=== PATIENT | female | born 1980 | race Caucasian/White ===

== ENCOUNTER 2019-01-29 20:54 | Emergency (ER) | payer OTHER ==
[2019-01-29 21:13] VITALS: BP 104/62
[2019-01-29] MEDS ORDERED: Nitrofurantoin Macrocrystals* 50 MG CAP PO ONE (21:35)
[2019-01-29] MEDS ORDERED: Ibuprofen TAB* 400 MG PO ONE (21:37)
[2019-01-29] MEDS ORDERED: Phenazopyridine TAB* 100 MG PO ONE (21:37)
--- NOTE | 2019-01-29 21:44 | UC ---
Complaint Female HPI - HPI Summary HPI Summary: Pt presents with sudden onset of urinary frequency, urgency an ddysuria that began this morning. Pt states that she is trying to get . - History Of Current Complaint Chief Complaint: UCGU Stated Complaint: POSS UTI Time Seen by Provider: 01/29/19 21:06 Hx Obtained From: Patient Hx Last Menstrual Period: 01/13/2019 ?: No Onset/Duration: Sudden Onset, Lasting Hours Timing: Constant Severity Initially: Mild Severity Currently: Moderate Pain Intensity: 6 Character: Dull, Burning Aggravating Factor(s): Urination Alleviating Factor(s): Nothing Associated Signs And Symptoms: Positive: Negative - Risk Factors Ectopic Risk Factor: Negative Ovarian Torsion Risk Factor: Reproductive Age - Allergies/Home Medications Allergies/Adverse Reactions: Allergies Allergy/AdvReac Type Severity Reaction Status Date / Time No Known Allergies Allergy Verified 01/17/15 18:30 Home Medications: Home Medications Multivitamin [Rol-Oarfal-Ysltr] 1 each PO 01/29/19 [History] PMH/Surg Hx/FS Hx/Imm Hx Previously Healthy: Yes - Surgical History Surgical History: Yes Surgery Procedure, Year, and Place: ectopic right tube removed 2005 - Family History Known Family History: Positive: Cardiac Disease - Social History Occupation: Employed Full-time Lives: With Family Alcohol Use: Occasionally Substance Use Type: None Smoking Status (MU): Never Smoked Tobacco Have You Smoked in the Last Year: No - Immunization History Vaccination Up to Date: Yes Review of Systems All Other Systems Reviewed And Are Negative: Yes Constitutional: Positive: Negative Skin: Positive: Negative Eyes: Positive: Negative ENT: Positive: Negative Respiratory: Positive: Negative Cardiovascular: Positive: Negative Gastrointestinal: Positive: Negative Genitourinary: Positive: Dysuria, Frequency, Urgency Motor: Positive: Negative Neurovascular: Positive: Negative Musculoskeletal: Positive: Negative Neurological: Positive: Negative Psychological: Positive: Negative Is Patient Immunocompromised?: No Physical Exam Triage Information Reviewed: Yes Appearance: Well-Appearing Vital Signs: Initial Vital Signs Temp 98.9 F 01/29/19 21:07 Pulse 80 01/29/19 21:07 Resp 16 01/29/19 21:07 BP 104/62 01/29/19 21:07 Pulse Ox 100 01/29/19 21:07 Vital Signs Reviewed: Yes Eye Exam: Normal ENT Exam: Normal Dental Exam: Normal Neck exam: Normal Respiratory Exam: Normal Cardiovascular Exam: Normal Abdominal Exam: Normal Abdomen Description: Positive: Nontender Musculoskeletal Exam: Normal Neurological Exam: Normal Psychological Exam: Normal Skin Exam: Normal Complaint Female Dx - Differential Dx/Diagnosis Differential Diagnosis/HQI/PQRI: Urinary Tract Infection Provider Diagnosis: UTI (urinary tract infection) Discharge - Sign-Out/Discharge Documenting (check all that apply): Patient Departure All imaging exams completed and their final reports reviewed: No Studies - Discharge Plan Condition: Stable Disposition: HOME Prescriptions: Nitrofurantoin Monohyd/M-Cryst [Macrobid 100 mg Capsule] 100 mg PO Q12H #14 cap Phenazopyridine TAB* [Pyridium 100 mg TAB*] 100 mg PO Q8H #3 tab Patient Education Materials: Urinary Tract Infection in Women (ED) Referrals: [facility] [place] PHYSICIAN REFERRAL [Outside] - If Needed No Primary Care Phys,NOPCP [Primary Care Provider] - Additional Instructions: Please follow up with your PCP as needed. - Billing Disposition and Condition Condition: STABLE Disposition: Home
== END 2019-01-29 21:56 | disposition home or self-care (01) ==
LOC: UCEAST 20:54
DX: N39.0 Urinary tract infection, site not specified (principal)
CPT/HCPCS: 81002; 81025; 87077; 87086; 87186; 99212; A9270-GY; G0463

== ENCOUNTER 2019-07-23 11:00 | Emergency (ER) | payer OTHER ==
[2019-07-23 11:15] VITALS: BP 98/60
--- NOTE | 2019-07-23 11:53 | UC ---
Respiratory Complaint HPI - HPI Summary HPI Summary: Patient is a 39yo female presenting with for productive cough x3 days. Note shortness of breath on exertion. Denies shortness breath at rest. Denies wheezing. Denies chest pain. Denies nasal congestion. Notes sore throat from coughing. Denies nausea and vomiting. Patient states unsure of fever or chills. She does note concern for the flu. States she took TheraFlu for symptoms. Denies h/o asthma. Nonsmoker - History of Current Complaint Chief Complaint: UCGeneralIllness Stated Complaint: RESPIRATORY Hx Obtained From: Patient Hx Last Menstrual Period: 07/03/2019 Pain Intensity: 3 Pain Scale Used: 0-10 Numeric - Allergies/Home Medications Allergies/Adverse Reactions: Allergies Allergy/AdvReac Type Severity Reaction Status Date / Time No Known Allergies Allergy Verified 07/23/19 11:16 Home Medications: Home Medications Amoxicillin PO (*) [Amoxicillin 875 MG (*)] 1 tab PO BID 07/23/19 [History Confirmed 07/23/19] PMH/Surg Hx/FS Hx/Imm Hx Previously Healthy: Yes - Surgical History Surgical History: Yes Surgery Procedure, Year, and Place: ectopic right tube removed 2005 - Family History Known Family History: Positive: Cardiac Disease - Social History Alcohol Use: Occasionally Substance Use Type: None Smoking Status (MU): Never Smoked Tobacco Have You Smoked in the Last Year: No - Immunization History Vaccination Up to Date: Yes Review of Systems All Other Systems Reviewed And Are Negative: Yes Constitutional: Positive: Negative. Negative: Fever, Chills ENT: Positive: Sore Throat - from coughing Respiratory: Positive: Shortness Of Breath - on exertion, Cough - productive Cardiovascular: Positive: Negative Gastrointestinal: Positive: Negative. Negative: Vomiting, Nausea Musculoskeletal: Positive: Negative Neurological: Positive: Negative Physical Exam - Summary Physical Exam Summary: Vital Signs Reviewed: Yes A+Ox3, no distress, well-appearing Eyes: Conjunctiva Clear ENT: Hearing grossly normal, TM x 2 clear, moist, uvula midline, no exudate, no erythema Neck: Positive: Supple Respiratory: Positive: No respiratory distress, No accessory muscle use + CTA throughout no w/r Cardiovascular: RRR nl s1, s2 no m/r Musculoskeletal Exam: LAZAR x 4 without difficulty Neurological: Positive: Alert Psychological: Positive: age appropriate behavior Skin: Positive: no rash, no ecchymosis Vital Signs: Initial Vital Signs Temp 98 F 07/23/19 11:12 Pulse 89 07/23/19 11:12 Resp 17 07/23/19 11:12 BP 98/60 07/23/19 11:12 Pulse Ox 100 07/23/19 11:12 Lab Results 07/23/19 Range/Units 12:15 Influenza A (Rapid) Negative (Negative) Influenza B (Rapid) Negative (Negative) Respiratory Course/Dx - Course Course Of Treatment: Negative rapid flu. Lung sounds clear bilaterally and vital signs normal. Educated patient on likely viral etiology of acute bronchitis and instructed her to continue with symptomatic treatment. Patient declined treatment inhaler for Tessalon Perles. Instructed to follow-up with [facility] or physician referral if symptoms worsen or persist. Patient voiced understanding and agreed with the treatment plan. - Differential Dx/Diagnosis Provider Diagnosis: Acute bronchitis Discharge ED - Sign-Out/Discharge Documenting (check all that apply): Patient Departure All imaging exams completed and their final reports reviewed: No Studies - Discharge Plan Condition: Stable Disposition: HOME Patient Education Materials: Acute Bronchitis (ED) Referrals: [facility] [Outside] - If Needed [facility] [place] [facility] REFERRAL [Outside] - If Needed Additional Instructions: Your flu test was negative today. Your symptoms are likely caused by a virus and should resolve without treatment. You may take over the counter cough and cold medications. Get plenty of rest and increase fluid intake. Follow up with your primary care provider or one of the referrals listed below if your symptoms worsen or do not resolve within 7 days. - Billing Disposition and Condition Condition: STABLE Disposition: Home - Attestation Statements Provider Attestation: This patient was not seen by me. I was available for consult. Chart reviewed. BLACK
[2019-07-23 12:26] LABS: Influenza A Molecular Negative (Negative); Influenza B Molecular Negative (Negative)
== END 2019-07-23 12:40 | disposition home or self-care (01) ==
LOC: UCEAST 11:00
DX: J20.9 Acute bronchitis, unspecified (principal)
CPT/HCPCS: 99211; G0463